=== PATIENT | male | born 1960 | race Caucasian/White ===

== ENCOUNTER 2017-11-15 11:45 | Inpatient (IN) | payer BC ==
[~2017-11-15] VITALS: Ht 180.3 cm; Wt 64.9 kg
--- NOTE | ~2017-11-15 | HEMODYNAMI ---
PATIENT:PINA LANE MEDICAL RECORD: [id number] : 64 LOCATION:D.MS Sneed2231 ADMISSION DATE: 11/15/17 Generatedon:11/15/201719:31 Patient name: PINA LANE Patient #: [id number] SSN: DO B: 1960 Date of study: 11/15/2017 Page: Of Hemodynamic Procedure Report Patient Data Patient Demographics Procedure consent was obtained First Name: PINA Gender: Male Last Name: DOMINGO : 1960 Patient #: [id number] Age: 57 year(s) Race: Unknown Additional ID: [id number] Contact details Address: [address] [place] [address] State: [place] City: [place] Zip code: [address] Admission Admission Data Admission Date: 11/15/2017 Admission Time: 15:50 Room #: D.2231 Weight (lbs.): 143 Weight (kg.): 64.86 Procedure Procedure Types Cath Procedure Peripheral Cath Diagnostic Procedure Cath Peripheral Nephro Nephrostomy Tubes Procedure Description Procedure Date Procedure Date: 11/15/2017 Procedure Start Time: 18:07 Procedure End Time: 19:28 Procedure Staff Name Function Nichole Murphy RT Financial Business Analyst Nichole Murphy RT Monitor Sheng Christian RT Scrub Anay Madison RN Nurse Talat Jones MD Performing Physician Justine Mcbride RN Nurse Procedure Data Cath Procedure Fluoroscopy Diagnostic fluoroscopy Total fluoroscopy Time: time: 14.3 min 14.3 min Diagnostic fluoroscopy Total fluoroscopy dose: 253 dose: 253 mGy mGy Contrast Material Contrast Material Type Amount (ml) Isovue 300 45 Procedure Medications Medication Administration Route Dosage Versed I.V. 2 mg Fentanyl I.V. 50 mcg Heparin Flush Bag added to field 1 bags (1000units/500ml NS) Lidocaine 1% added to field 20 Oxygen etCO2 Nasal cannula 4 l/min Levaquin I.V.P.B 500 mg Fentanyl I.V. 50 mcg Versed I.V. 2 mg Fentanyl I.V. 50 mcg Hemodynamics Rest Heart Rate: 83 (bpm) Snapshots Pre Cath Intra NCS Post Cath Vital Signs Time Heart Resp SPO2 etCO2 NIBP (mmHg) Rhythm Pain Status Sedation Rate (ipm) (%) (mmHg) Level (bpm) 17:58:57 83 6 33.2 120/74(93) NSR 0 (11) , No 10(A) pain 18:03:03 81 16 33.2 126/74(98) NSR 0 (11) , No 10(A) pain 18:07:11 82 13 34 121/76(93) NSR 0 (11) , No 10(A) pain 18:11:19 85 9 97 37 118/75(95) NSR 0 (11) , No 10(A) pain 18:15:25 84 7 98 37.7 119/74(97) NSR 0 (11) , No 8(A) pain 18:19:36 85 8 98 37.7 113/73(93) NSR 0 (11) , No 8(A) pain 18:23:40 86 8 99 38.5 119/74(89) NSR 0 (11) , No 8(A) pain 18:27:46 85 8 99 37 106/74(85) NSR 2 (11) , 8(A) Uncomfortable 18:31:48 84 9 100 36.9 113/73(89) NSR 0 (11) , No 8(A) pain 18:35:51 83 6 100 35.4 111/77(86) NSR 0 (11) , No 8(A) pain 18:39:55 84 6 99 36.9 105/73(93) NSR 0 (11) , No 8(A) pain 18:43:55 84 6 100 36.2 115/80(90) NSR 0 (11) , No 8(A) pain 18:47:58 84 7 99 35.4 112/77(96) NSR 0 (11) , No 8(A) pain 18:52:00 83 7 99 36.2 113/80(91) NSR 2 (11) , 8(A) Uncomfortable 18:56:02 82 8 100 38.5 115/80(93) NSR 2 (11) , 8(A) Uncomfortable 19:00:06 86 8 99 43 117/80(100) NSR 0 (11) , No 8(A) pain 19:04:09 81 6 99 40 117/80(87) NSR 0 (11) , No 8(A) pain 19:08:11 84 5 99 41.5 114/82(107) NSR 0 (11) , No 8(A) pain 19:12:15 85 6 99 19.6 110/74(104) NSR 0 (11) , No 8(A) pain 19:16:17 83 7 100 40.8 113/75(101) NSR 0 (11) , No 8(A) pain 19:20:23 82 6 99 16.6 113/70(90) NSR 0 (11) , No 9(A) pain 19:24:22 47.6 No Cuff NSR 0 (11) , No 9(A) pain 19:28:22 0 No Cuff NSR 0 (11) , No 9(A) pain Medications Time Medication Route Dose Verified Delivered Reason Notes Effec tiveness by by 18:14:26 Versed I.V. 2 mg M J Long Justine for Sedat ed @ MD Reed MARIN sedation 18:26:21 18:14:37 Fentanyl I.V. 50 M J Long Justine for Sedat ed @ [facility] [place] MD Reed MARIN sedation 18:26:18 18:15:04 Heparin Flush added 1 M J Long M J Long Per Bag to bags MD DELGADO protocol (1000units/500ml field NS) 18:15:16 Lidocaine 1% added 20ml M J Long M J Long Per to vial MD DELGADO protocol field 18:15:33 Oxygen etCO2 4 M J Robert Floresine Per Nasal l/min MD Reed MARIN protocol cannula 18:25:33 Levaquin I.V.P.B 500mg M J Long Justine Per MD Reed MARIN protocol 18:29:41 Fentanyl I.V. 50 M J Long Justine for Sedat ed @ [facility] MD Reed MARIN sedation 18:42:52 18:54:06 Versed I.V. 2 mg M J Long Justine for MD Reed MARIN sedation 18:57:59 Fentanyl I.V. 50 M J Long Justine for [facility] MD Reed MARIN sedation Procedure Log Time Note 17:15:23 Patient Weight : 143 lbs 17:16:04 Use device set IR Diagnostic 17:45:33 Sheng Christian RT (R) (CV) sent for patient. Start room use. 17:45:47 Time tracking: Regular hours (M-F 7:00 - 5:00) 17:45:52 Plan of Care:Hemodynamics will remain stable., Cardiac rhythm will remain stable., Comfort level will be maintained., Respiratory function will remain adequate., Patient/ family verbilizes understanding of procedure., Procedure tolerated without complication., Recovers from procedure without complications.. 17:46:00 Patient received from Med/Surg to IR Alert and oriented. Tansferred to table in Prone position. 17:46:01 Correct patient and procedure confirmed by team. 17:46:03 Signed procedure consent form obtained from patient. 17:46:04 ECG and BP/O2 sat monitors applied to patient. 17:46:06 Full Disclosure recording started 17:46:07 - 17:46:10 Pre-procedure instructions explained to patient. 17:46:10 H&P Date Dictated: 11/15/2017 Within 30 days and on chart.. 17:46:11 Pre-op teaching completed and patient verbalized understanding. 17:46:12 Family in waiting room. 17:46:14 Patient NPO since Midnight. 17:46:18 Is the patient allergic to Iodine/contrast media? No. 17:46:20 Is patient on blood thinner?No 17:46:21 Patient diabetic? Yes. 17:46:23 If diabetic: On Metformin? No 17:46:24 - 17:46:25 ----Pre-sedation anethsthesia assessment.---- 17:46:28 Previous problem with sedation/anesthesia? No ? 17:46:29 Snore? No 17:46:30 Sleep apnea? No 17:46:34 Opens mouth fully? Yes 17:46:43 Deviated septum? No 17:46:44 Sticks out tongue? Yes 17:46:46 Airway obstruction? No ? 17:46:48 Dentures? No ? 17:46:55 Patient pain scale 0/10 no pain. 17:47:10 IV patent on arrival in left forearm with Lactated Ringers at [facility]. 17:47:18 Alarms reviewed by R. N. 17:47:18 Sharps counted by scrub and verified by R.N. 17:47:24 Lumbar area was prepped with chlora-prep and draped in sterile fashion 17:48:00 Use device set IR Diagnostic 17:48:02 Sterile Angiographic Pack opened to sterile field. 17:48:02 Tegaderm 4 x 4 (1626W) opened to sterile field. 17:48:03 Bag Decanter (2002S) opened to sterile field. 17:48:58 KIT, INTRODUCER ACCUSTICK II W/C ([id number]) opened to sterile field. 17:58:00 Vital chart was started 17:58:03 Baseline sample Acquired. 17:58:07 - 17:58:27 Abscession 8Fr drainage catheter ([id number]) opened to sterile field. 17:58:30 STOPCOCK 3-Way Large Bore ([id number]) opened to sterile field. 18:06:26 Physician arrived 18:06:44 --------ALL STOP TIME OUT------ 18:06:45 Final Timeout: patient, procedure, and site verified with staff and physician. All members of the team are in agreement. 18:07:14 Procedure started. 18:07:32 Local anesthetic to left renal area with Lidocaine 1% by Talat Jones MD.INITIAL ACCESS ONLY 18:14:26 Versed 2 mg I.V. was administered by Justine Reed RN; for sedation; 18:14:37 Fentanyl 50 mcg I.V. was administered by Justine Mcbride RN; for sedation; 18:15:04 Heparin Flush Bag (1000units/500ml NS) 1 bags added to field was administered by Talat Jones MD; Per protocol; 18:15:16 Lidocaine 1% 20ml vial added to field was administered by Talat Jones MD; Per protocol; 18:15:33 Oxygen 4 l/min etCO2 Nasal cannula was administered by Justine Mcbride RN; Per protocol; 18:16:23 CHIBA 22 X 15 needle opened to sterile field. 18:25:33 Levaquin 500mg I.V.P.B was administered by Justine Mcbride RN; Per protocol; 18:26:18 Effectiveness of Fentanyl delivered @ 18:14:37 is: Sedated 18:26:21 Effectiveness of Versed delivered @ 18:14:26 is: Sedated 18:26:22 NITINOL .018 80cm wire ([id number]) opened to sterile field. 18:29:41 Fentanyl 50 mcg I.V. was administered by Justine Mcbride RN; for sedation; 18:30:32 CHIBA 22 X 15 needle opened to sterile field. 18:34:20 CHIBA 20 X 15 needle opened to sterile field. 18:35:58 NITINOL .018 80cm wire ([id number]) opened to sterile field. 18:42:52 Effectiveness of Fentanyl delivered @ 18:29:41 is: Sedated 18:45:42 GLIDE WIRE Angled Super Stiff 180cm (YP2969) opened to sterile field. 18:52:10 Henley Sci 8FR X 26 CM Ureteral Stent ([id number]) opened to sterile field. 18:54:06 Versed 2 mg I.V. was administered by Justine Mcbride RN; for sedation; 18:54:11 PEEL-A-WAY INTRODUCER 9FR. opened to sterile field. 18:54:43 Access is gained to the LEFT kidney 18:55:19 DILATOR, VESSEL 6/20 opened to sterile field. 18:57:59 Fentanyl 50 mcg I.V. was administered by Justine Mcbride RN; for sedation; 18:59:14 PEEL-A-WAY INTRODUCER 9FR. opened to sterile field. 18:59:34 DILATOR, VESSEL 10/20 opened to sterile field. 19:04:27 BAG, DRAINAGE EMPTY 600ML W/SANAM (EPD341) opened to sterile field. 19:05:50 8French X26 cm double J stent placed into the Left kidney to bladder. 19:06:51 8French x 30 cm total abcession drainage cather placed into the Left Kidney. 19:12:01 Tegaderm 6 x 8 (1628) opened to sterile field. 19:12:05 SUTURE ETHILON 2-0 BLK MONO FS opened to sterile field. 19:13:15 The 8Fr. pigtail cath is sutured in place. 19:13:58 Procedure ended.(Physican Out) 19:14:22 Fluoroscopy time 14.30 minutes. 19:15:19 Fluoroscopy dose: 253 mGy 19:15:19 Flurop Dose total: 253 19:15:36 Contrast amount:Isovue 300 45ml. 19:15:41 Sharps counted by scrub and verified by R.N. 19:18:32 Insertion/operative site no bleeding no hematoma. 19:18:51 Post-op/insertion site Left Lumbar area dressed using a 4 x 4 and Tegaderm. 19:19:07 Post Lumbar area:stable 19:19:20 Post procedure instruction explained to patient.Patient verbalizes understanding. 19:19:22 Patient needs reinforcement of post procedure teaching. 19:19:26 Procedure and supply charges have been captured, reviewed, submitted an d are correct. 19:22:40 See physician's report for complete and final results. 19:22:49 Report given to Med/Surg. 19:23:01 Patient transfered to Med/Surg with Bed. 19:28:30 Vital chart was stopped 19:28:37 Full Disclosure recording stopped 19:28:37 Procedure ended. 19:29:04 End room use (Document Last) Device Usage Item Name Manufacture Quantity Catalog Hospital Part Current Minima l Lot# / Number Charge Number Stock Stock Serial# Code Tegaderm 4 x 3M 1 1626W [id number] [id number] [id number] 5 4 (1626W) Sterile Cardinal 1 [id number] 061615 970610 5 Angiographic Health Pack Bag Decanter Microtek 1 918651 88596 992443 5 () [employer] KIT, Henley 1 [id number] 474997 737280 916508 5 INTRODUCER Scientific ACCUSTICK II W/C ([id number]) Abscession Angiodynamics 1 [id number] 221186 543210 104753 5 8Fr drainage catheter ([id number]) STOPCOCK [facility] 1 J42323 689165 1898 399525 5 [id number] 3-Way Large Bore (C65065) CHIBA 22 X [facility] 2 T55166 813115 319002 5 9214784 15 needle [id number] NITINOL .018 Medtronic 2 [id number] 807278 645746 5 80cm wire ([id number]) CHIBA 20 X [facility] 1 J75404 427130 527345 5 0251720 15 needle GLIDE WIRE Terumo 1 FM0028 064099 884928 5 Angled Super Stiff 180cm (HY7255) Henley Sci Henley 1 [id number] 002937 868914 797374 5 [id number] 8FR X 26 CM Scientific Ureteral Stent ([id number]) PEEL-A-WAY [facility] 2 A64557 115873 782630 005269 5 [id number] INTRODUCER [id number] 9FR. DILATOR, [facility] 1 Y98333 974909 91004 344136 5 1422929 VESSEL 6/20 DILATOR, [facility] 1 A47634 861436 34376 821898 5 VESSEL 10/20 BAG, [facility] 1 OKT714 514170 545316 810033 5 DRAINAGE EMPTY 600ML W/SANAM (KUA480) Tegaderm 6 x 3M 1 1628 046316 917251 5 8 (1628) SUTURE Ethicon 1 664H 628172 102899 5 ETHILON 2-0 BLK MONO FS Signature Audit [place] Stage Time Signature Unsigned Intra-Procedure 11/15/2017 Sheng 7:30:58 PM Shuffield RT (R) (CV) Signatures Monitor : Nichole Murphy RT Signature : Date : Time : [facility] [address] [place] [address]
--- NOTE | ~2017-11-15 | OP ---
PATIENT NAME: PINA LANE MEDICAL RECORD: [id number] :64 LOCATION:D.MS Sneed2231 ADMISSION DATE:11/15/17 SURGEON: RICARDO NOBLE MD DATE OF OPERATION: 11/16/2017 SURGEON: Ricardo Noble MD ANESTHESIA: General anesthesia by Carlito Ledezma CRNA DIAGNOSES: Acute renal failure, question of a left bladder or ureteral tumor, retained ureteral stent. PROCEDURE: Cystoscopy, removal of retained ureteral stents, left retrograde pyelogram. FINDINGS: Retained left ureteral stent in the bladder. Left ureteral stent placed by interventional radiology yesterday. Both stents were removed. No bladder tumors were seen. Inflammation of the left ureteral orifice from the retained ureteral stent. On retrograde pyelogram some hydronephrosis, but no filling defects or strictures were seen. BLOOD LOSS: None. CLINICAL HISTORY: This is a 57-year-old male smoker who was seen in the [place], [place] Emergency Room at [facility] for acute left flank pain and he was found to have acute renal failure. The CT scan of the abdomen and pelvis without IV contrast was performed at [facility]. The radiologist there reported that he had left hydroureteronephrosis due to a 17 mm left distal ureteral or bladder tumor at the UV junction causing the hydronephrosis. Also, retained ureteral stent coiled up in the bladder was seen. His creatinine in [place] was 2.47. He was transferred here as an emergency for a possible bladder cancer causing left ureteral obstruction. When he arrived here, I took CD of images that the patient had with him from [place]. In our radiology suite, we were unable to view any of these images except for some images from a duplex ultrasound, which were irrelevant to our current problem. Therefore, a repeat CT scan had to be done on the stat basis yesterday. I did not see any obvious bladder tumor, although there was slight thickening of the bladder wall near the left ureteral orifice. The retained ureteral stent was seen. If there was any hydronephrosis on the left side, it was very mild. The right kidney was somewhat atrophic, relative to the left. No kidney stones were seen. The history is that he had left ureteroscopy and stone extraction in May of [address] Martinez in [place]. Dr. Martinez had left ureteral stent on the left side. However, the patient never had a followup with Dr. Martinez to remove the stent and therefore, the stent is now coiled up in the bladder. The more pressing point is that no mention was made by Dr. Martinez to the patient of him having a bladder tumor. Nevertheless, after the CT scan, the patient had a left nephrostomy tube inserted by interventional radiology. He also had a left antegrade ureteral stent inserted by interventional radiology. He comes today to try to determine what the situation is in the operating room. He will have removal of his retained ureteral stents. He will also have possible bladder tumor resection if we see a bladder tumor. I will also perform a retrograde pyelogram to determine if there is a filling defect in the ureter, which would warrant performing ureteroscopy. I ordered Levaquin 250 mg IV window unit air conditioning mechanic to the OR in view of his elevated creatinine. However, he got 500 mg given to him. OPERATIVE REPORT [id number] PINA L[address] DESCRIPTION OF PROCEDURE: The patient was given induction of general anesthesia. He was then placed in dorsal lithotomy position and prepped and draped. A 21-Turkmen cystoscope with 30-degree lens was used for visualization. Prostatic urethra was not obstructive. There is some lateral lobe enlargement. Going into the bladder, there was a lot of calcium debris floating around in the bladder. I could see the partly calcified old left ureteral stent in the bladder. Grasping forceps were used and this was entirely removed. This was sent to pathology for identification. The left ureteral stent that was placed by interventional radiology yesterday was also seen and this was removed also entirely. This was sent separately to pathology for identification. I should note that in spite of the presence of the left ureteral stent and the left nephrostomy tube, the patient's creatinine has continued to rise and today, it is 2.6. Looking carefully throughout the entire bladder surface, the bladder surface is inflamed from the presence of the retained ureteral stent. There is an inflammatory edema around the left ureteral orifice. However, there are no bladder tumors. An open-ended ureteral catheter was then inserted into the left ureteral orifice and a retrograde pyelogram was performed. There is slight degree of hydroureteronephrosis, which may just be from left ureteral stasis due to possible infection. However, no filling defects were seen and there are no stones seen. The bladder was emptied through the cystoscope sheath and then the scope was entirely removed. The procedure was terminated. I will get nephrology to see him regarding his renal failure because I believe that it is due to intrinsic renal disease. TRANSINT:[id number] Voice Confirmation ID: [id number] DOCUMENT ID: [id number] RICARDO NOBLE MD at 1601 CC: [id number] DICTATION DATE: 11/16/17911 BEEF BREAKER: 11/16/17 1351 ADM IN [place] [id number] [place] [address]
[2017-11-15 16:09] VITALS: BP 126/72; BMI 19.9
[2017-11-15 17:51] LABS: INR 1.05 (0.85-1.17); PROTIME 13.3 SECONDS (11.6-15.0)
[2017-11-16 04:36] VITALS: BP 129/75
[2017-11-16 07:49] LABS: BASOPHILS 0.3 % (0-2); EOSINOPHILS 2.4 % (0-7); HEMATOCRIT 26.4 % (42.0-54.0); HEMOGLOBIN 9.1 g/dL (13.5-17.5); IMMATURE GRANULOCYTES 0.3 % (0-5); MCH 30.1 pg (26.0-34.0); MCHC 34.5 g/dL (31.0-37.0); MCV 87.4 fL (80.0-100.0); MEAN PLATELET VOLUME 9.2 fL (7.4-10.4); MONOCYTES 9.9 % (2-11); NEUTROPHILS 70.1 % (40-80); PLATELET COUNT 264 10x3/uL (130-400); RBC 3.02 10x6/uL (4.20-6.10); RDW 14.5 % (11.5-14.5); WBC 6.8 10x3/uL (4.8-10.8)
[2017-11-16 07:57] LABS: ANION GAP 13.4 mmol/L (8-16); CALCIUM 8.8 mg/dL (8.5-10.1); CARBON DIOXIDE 21.9 mmol/L (21.0-32.0); CREATININE - SERUM 2.6 mg/dL (0.6-1.3); POTASSIUM - SERUM 5.3 mmol/L (3.5-5.1)
[2017-11-16 09:09] VITALS: BP 156/46
[2017-11-16 11:44] VITALS: BMI 19.9
[2017-11-16 12:30] VITALS: BP 125/78
[2017-11-16 15:58] VITALS: BP 106/58
[2017-11-16 20:00] VITALS: BP 105/64
[2017-11-17] VITALS: BP 115/69
[2017-11-17 04:00] VITALS: BP 118/72
[2017-11-17 05:43] LABS: BASOPHILS 0.2 % (0-2); EOSINOPHILS 2.2 % (0-7); HEMATOCRIT 25.2 % (42.0-54.0); HEMOGLOBIN 8.7 g/dL (13.5-17.5); IMMATURE GRANULOCYTES 0.4 % (0-5); LYMPHOCYTES 22.1 % (15-50); MCH 29.9 pg (26.0-34.0); MCHC 34.5 g/dL (31.0-37.0); MCV 86.6 fL (80.0-100.0); MEAN PLATELET VOLUME 9.2 fL (7.4-10.4); MONOCYTES 9.2 % (2-11); NEUTROPHILS 65.9 % (40-80); PLATELET COUNT 289 10x3/uL (130-400); RBC 2.91 10x6/uL (4.20-6.10); RDW 14.2 % (11.5-14.5); WBC 5.5 10x3/uL (4.8-10.8)
[2017-11-17 06:02] LABS: CALCIUM 8.9 mg/dL (8.5-10.1); CARBON DIOXIDE 20.3 mmol/L (21.0-32.0); CREATININE - SERUM 2.5 mg/dL (0.6-1.3); POTASSIUM - SERUM 5.3 mmol/L (3.5-5.1)
[2017-11-17 08:57] VITALS: BP 126/76
[2017-11-17 12:22] VITALS: BP 125/70
[2017-11-17 15:44] LABS: % SATURATION 17 % (15-55); IRON 43 ug/dl (35-150); TOTAL IRON BIND CAPACITY 248 ug/dl (260-445); UNSAT IRON BIND CAPACITY 205 ug/dl (150-375)
[2017-11-17 16:10] VITALS: Ht 180.3 cm; Wt 64.9 kg
[2017-11-17 17:47] VITALS: BP 128/79
[2017-11-17 20:00] VITALS: BP 110/62
[2017-11-18] VITALS (13 sets, daily range): BP systolic 109–121; BP diastolic 60–75
[2017-11-18 06:13] LABS: BASOPHILS 0.4 % (0-2); EOSINOPHILS 5.1 % (0-7); HEMATOCRIT 26.6 % (42.0-54.0); HEMOGLOBIN 9.2 g/dL (13.5-17.5); IMMATURE GRANULOCYTES 0.2 % (0-5); LYMPHOCYTES 26.5 % (15-50); MCH 30.1 pg (26.0-34.0); MCHC 34.6 g/dL (31.0-37.0); MCV 86.9 fL (80.0-100.0); MEAN PLATELET VOLUME 8.8 fL (7.4-10.4); MONOCYTES 8.9 % (2-11); NEUTROPHILS 58.9 % (40-80); RBC 3.06 10x6/uL (4.20-6.10); RDW 14.4 % (11.5-14.5); WBC 5.1 10x3/uL (4.8-10.8)
[2017-11-18 06:29] LABS: PLATELET COUNT 362 10x3/uL (130-400)
[2017-11-18 07:08] LABS: INR 0.95 (0.85-1.17); PROTIME 12.3 SECONDS (11.6-15.0)
[2017-11-18 07:09] LABS: APTT 34.8 SECONDS (22.8-39.4)
[2017-11-18 07:20] LABS: ANION GAP 15.3 mmol/L (8-16); CALCIUM 8.7 mg/dL (8.5-10.1); CARBON DIOXIDE 22.4 mmol/L (21.0-32.0); CREATININE - SERUM 2.1 mg/dL (0.6-1.3); POTASSIUM - SERUM 4.7 mmol/L (3.5-5.1)
[2017-11-19 04:00] VITALS: BP 112/70
[2017-11-19 07:28] LABS: BASOPHILS 0.2 % (0-2); EOSINOPHILS 4.3 % (0-7); HEMATOCRIT 25.9 % (42.0-54.0); HEMOGLOBIN 8.9 g/dL (13.5-17.5); IMMATURE GRANULOCYTES 0.5 % (0-5); LYMPHOCYTES 27.7 % (15-50); MCH 29.9 pg (26.0-34.0); MCHC 34.4 g/dL (31.0-37.0); MCV 86.9 fL (80.0-100.0); MEAN PLATELET VOLUME 8.7 fL (7.4-10.4); MONOCYTES 11.8 % (2-11); NEUTROPHILS 55.5 % (40-80); PLATELET COUNT 342 10x3/uL (130-400); RBC 2.98 10x6/uL (4.20-6.10); WBC 5.8 10x3/uL (4.8-10.8)
[2017-11-19 07:56] LABS: ANION GAP 18.3 mmol/L (8-16); CALCIUM 8.9 mg/dL (8.5-10.1); CARBON DIOXIDE 21.1 mmol/L (21.0-32.0); POTASSIUM - SERUM 4.4 mmol/L (3.5-5.1)
[2017-11-19 09:15] VITALS: BP 119/75
[2017-11-19 14:25] VITALS: BP 108/54
[2017-11-19 17:06] VITALS: BP 123/72
[2017-11-19 20:00] VITALS: BP 103/63
[2017-11-20 04:00] VITALS: BP 100/79
[2017-11-20 06:44] LABS: BASOPHILS 0.4 % (0-2); EOSINOPHILS 3.3 % (0-7); HEMATOCRIT 27.4 % (42.0-54.0); HEMOGLOBIN 9.5 g/dL (13.5-17.5); IMMATURE GRANULOCYTES 1.4 % (0-5); LYMPHOCYTES 28.4 % (15-50); MCH 30.4 pg (26.0-34.0); MCHC 34.7 g/dL (31.0-37.0); MCV 87.5 fL (80.0-100.0); MEAN PLATELET VOLUME 8.7 fL (7.4-10.4); MONOCYTES 11.1 % (2-11); NEUTROPHILS 55.4 % (40-80); PLATELET COUNT 363 10x3/uL (130-400); RBC 3.13 10x6/uL (4.20-6.10); WBC 5.1 10x3/uL (4.8-10.8)
[2017-11-20 06:55] LABS: INR 1.03 (0.85-1.17); PROTIME 13.1 SECONDS (11.6-15.0)
[2017-11-20 06:56] LABS: APTT 27.6 SECONDS (22.8-39.4)
[2017-11-20 07:00] LABS: ANION GAP 13.6 mmol/L (8-16); POTASSIUM - SERUM 4.6 mmol/L (3.5-5.1)
[2017-11-20 09:30] VITALS: BP 134/81
[2017-11-20 10:22] LABS: HEPATITIS C ANTIBODY >11.0 (0.0-0.9)
[2017-11-20 11:28] VITALS: BP 96/70
== END 2017-11-20 15:01 | disposition home or self-care (01) | DRG 674 ==
LOC: D.MS 11:45
PROVIDERS: Internal Medicine Hematology & Oncology; Internal Medicine Nephrology; Radiology Vascular & Interventional Radiology; Specialist; Urology
PROC: 0T773DZ Dilation of Left Ureter with Intraluminal Device, Percutaneous Approach (ICD-10-PCS; 2017-11-15)
PROC: 0T9430Z Drainage of Left Kidney Pelvis with Drainage Device, Percutaneous Approach (ICD-10-PCS; principal; 2017-11-15 18:06)
PROC: 0TP98DZ Removal of Intraluminal Device from Ureter, Via Natural or Artificial Opening Endoscopic (ICD-10-PCS; 2017-11-16)
PROC: BT1F1ZZ Fluoroscopy of Left Kidney, Ureter and Bladder using Low Osmolar Contrast (ICD-10-PCS; 2017-11-16)
PROC: 0QB23ZX Excision of Right Pelvic Bone, Percutaneous Approach, Diagnostic (ICD-10-PCS; 2017-11-18)
PROC: 07DR3ZX Extraction of Iliac Bone Marrow, Percutaneous Approach, Diagnostic (ICD-10-PCS; 2017-11-18)
PROC: 0WBH3ZX Excision of Retroperitoneum, Percutaneous Approach, Diagnostic (ICD-10-PCS; 2017-11-20)
DX: N13.1 Hydronephrosis with ureteral stricture, not elsewhere classified (principal); N17.9 Acute kidney failure, unspecified; E11.65 Type 2 diabetes mellitus with hyperglycemia; J44.9 Chronic obstructive pulmonary disease, unspecified; F17.200 Nicotine dependence, unspecified, uncomplicated; K21.9 Gastro-esophageal reflux disease without esophagitis; K22.2 Esophageal obstruction; K75.9 Inflammatory liver disease, unspecified; E11.22 Type 2 diabetes mellitus with diabetic chronic kidney disease; I12.9 Hypertensive chronic kidney disease with stage 1 through stage 4 chronic kidney disease, or unspecified chronic kidney disease; N18.9 Chronic kidney disease, unspecified; D50.9 Iron deficiency anemia, unspecified; D63.1 Anemia in chronic kidney disease; R59.1 Generalized enlarged lymph nodes; R16.0 Hepatomegaly, not elsewhere classified